=== PATIENT | male | born 1990 | race Caucasian/White ===

== ENCOUNTER 2017-07-17 08:39 | Emergency (ER) | payer OTHER ==
[2017-07-17 09:04] VITALS: BP 129/86
== END 2017-07-17 10:15 | disposition home or self-care (01) ==
LOC: ED 08:39
DX: J02.9 Acute pharyngitis, unspecified (principal)

== ENCOUNTER 2018-04-10 08:34 | Emergency (ER) | payer OTHER ==
[~2018-04-10] VITALS: Ht 172.7 cm; Wt 84.8 kg
[2018-04-10 08:39] VITALS: Ht 172.7 cm; Wt 84.8 kg
[2018-04-10 09:51] VITALS: BP 138/72
== END 2018-04-10 10:26 | disposition home or self-care (01) ==
LOC: ED 08:34
DX: S71.112D Laceration without foreign body, left thigh, subsequent encounter (principal); X58.XXXD Exposure to other specified factors, subsequent encounter
CPT/HCPCS: 36415

== ENCOUNTER 2019-03-25 23:57 | Emergency (ER) | payer OTHER ==
[~2019-03-25] VITALS: Ht 172.7 cm; Wt 86.6 kg
[2019-03-26 00:02] VITALS: Ht 172.7 cm; Wt 86.6 kg
[2019-03-26 00:37] VITALS: BP 123/81
== END 2019-03-26 00:37 | disposition home or self-care (01) ==
LOC: ED 23:57
DX: H01.002 Unspecified blepharitis right lower eyelid (principal)